=== PATIENT | male | born 1965 | race Caucasian/White ===

== ENCOUNTER 2022-04-17 13:19 | Emergency (ER) | payer BC, SELFPAY ==
[2022-04-17] VITALS (13 sets, daily range): BP systolic 156–180; BP diastolic 63–82; PULSE 45–65; RESP 11–30; TEMP 37.8; O2SAT 98–100; BMI 25.7
[2022-04-17] MEDS: ONDANSETRON 4 MG ODT SL (13:52)
[2022-04-17 13:59] LABS: Add Manual Diff / Slide Review NO; Basophils Absolute Auto 0 /uL (0-100); Basophils Percent Auto 0.2 % (0-2); Eosinophils Absolute Auto 0 /uL (0-450); Hematocrit 43.5 % (41-53); Hemoglobin 14.8 g/dL (13.5-17.5); Lymphocytes Absolute Auto 600 /uL (1100-4500); Lymphocytes Percent Auto 5.5 % (25-40); Mean Corpuscular HGB Conc 34.1 % (30-36); Mean Corpuscular Hemoglobin 30.5 PG (26-34); Mean Corpuscular Volume 89.4 fL (80-100); Monocytes Absolute Auto 300 /uL (0-900); Monocytes Percent Auto 2.7 % (3-14); Neutrophils Absolute Auto 9600 /uL (1500-7000); Neutrophils Percent Auto 91.6 % (50-75); Platelet Count 230 X10^3/uL (150-400); Red Blood Cell Count 4.86 X10^6/uL (4.5-5.9); Red Cell Distribution Width 13.1 % (11.6-14.8); White Blood Cell Count 10.5 X10^3/uL (4.5-11.0)
[2022-04-17 14:11] LABS: Alanine Aminotransferase 21 IU/L (<50); Albumin 4.8 g/dL (3.5-5.0); Albumin Globulin Ratio 1.5 (1.0-2.8); Alkaline Phosphatase 56 U/L (38-126); Aspartate Aminotransferase 33 IU/L (17-59); BUN Creatinine Ratio 14.8 (6-22); Bilirubin Total 0.9 mg/dL (0.2-1.3); Blood Urea Nitrogen 12 mg/dL (9-20); Calcium 9.4 mg/dL (8.4-10.2); Carbon Dioxide 27 mmol/L (22-32); Chloride 104 mmol/L (98-107); Estimated Glomerular Filt Rate > 60 mL/min (>60); Globulin 3.1 g/dL (1.7-4.1); Glucose 139 mg/dL (70-100); HEMOLYSIS < 15 (0-50); Lipase 82 U/L (23-300); Potassium 3.7 mmol/L (3.4-5.1); Sodium 142 mmol/L (137-145); Total Protein 7.9 g/dL (6.3-8.2)
[2022-04-17] MEDS: ACETAMINOPHEN 325 MG TABLET 975 MG PO (14:14)
[2022-04-17 14:34] LABS: COVID19 -Nasal RAPID Negative (Negative)
[2022-04-17 16:02] LABS: Bacteria Urine Occasional (0-1); Culture Indicated Urine Cult Not Indicated; Mucus Urine 2+ (Negative); RBC Urine 1-5/HPF (0-5/HPF); Squamous Epithelial Cell Urine None Seen (0-5/HPF); WBC Urine 0-1/HPF (0-5/HPF)
[2022-04-17] MEDS: KETOROLAC 30 MG/ML VIAL 15 MG IV (16:44)
--- NOTE | 2022-04-17 16:44 | ED.GENADULT ---
HPI - General Adult General Chief complaint: Abdominal Pain Stated complaint: detoxing oxiy vomitting no sleep cant drink Time Seen by Provider: 04/17/22 16:06 Source: patient Mode of arrival: Ambulatory History of Present Illness HPI narrative: Pito jeffrey is a 56-year-old man with opioid use disorder. He has been using blue ?oxycodone? pills that he acquires in [place]. He snorts these and uses approximately 10-20 each day. He says he has tried to quit using them multiple times all unsuccessfully. He normally lives in [facility] [place]. He is visiting this area just for about a week. His last opiate use was about 12 hours ago. He feels nausea and vomiting and muscle aches and very uncomfortable generally. He attributes all of these symptoms to opioid withdrawal. He denies any other substance use, specifically alcohol, benzodiazepines or other sedatives. He also denies stimulant use. Other than this drug addiction issue he says he does not have any other health problems. 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 Related Data Previous Rx's Medication Instructions Recorded buprenorphine 8 mg-naloxone 2 mg 1 film buccal DAILY #13 ea 04/17/22 sublingual film (Suboxone) clonidine HCl 0.2 mg tablet 0.2 mg PO TID Agitation, 04/17/22 irritability #20 tabs hydroxyzine HCl 50 mg tablet 50 mg PO TID PRN nausea and 04/17/22 vomiting #20 tabs ondansetron 4 mg disintegrating 4 mg PO Q6H Nausea #20 tabs 04/17/22 tablet Allergies Allergy/AdvReac Type Severity Reaction Status Date / Time No Known Drug Allergies Allergy Verified 04/17/22 13:52 Review of Systems Review of Systems Narrative: Complete review of systems is negative other than as noted above. Patient History Social History Smoking Status: Never smoker Smoking Status: Never smoker alcohol intake frequency: 0-2 drinks per day Exam Narrative Exam Narrative: GENERAL: Alert, looks very uncomfortable appearing. Yawning frequently. Dilated pupils. Gooseflesh HEAD: Atraumatic. Normocephalic. EYES: Sclera are clear without icterus. Extraocular movements are full. ENT: No rhinorrhea. Oropharynx is moist. Mouth exam is benign. NECK: Supple. Full range of motion. CARDIOVASCULAR: Normal rate and rhythm without murmur gallop or rub. RESPIRATORY: Clear to auscultation. Breath sounds equal bilaterally. No wheezes, rales, or rhonchi. GASTROINTESTINAL: Abdomen soft, non-tender, nondistended. EXTREMITIES: No edema, full range of motion. No obvious trauma. BACK: Normal inspection, no CVA tenderness. NEURO: Nonfocal examination, normal speech, normal gait. SKIN: No rash or erythema of visible areas PSYCH: Normally oriented. Normal range of affect. Appropriate behavior Initial Vital Signs Initial Vital Signs: Vital Signs Temperature 100.1 F H 04/17/22 13:29 Pulse Rate 60 04/17/22 13:29 Respiratory Rate 20 04/17/22 13:29 Blood Pressure 165/78 H 04/17/22 13:29 Pulse Oximetry 98 04/17/22 13:29 Oxygen Delivery Method 04/17/22 13:29 Course Orders Ordered: ED Orders 04/17/22 13:30 EKG-12 Lead Stat 04/17/22 13:47 Complete Blood Count AUTO DIFF Stat Comprehensive Metabolic Panel Stat Lipase Stat 04/17/22 14:19 COVID19 -Nasal RAPID/Pre-Proc Stat 04/17/22 15:36 Urine Drug Screen, Rapid Stat Urine Microscopic Stat Sodium Chloride (Normal Saline 0.9%) 1,000 mls @ 1,000 mls/hr IV BOLUS ONE Stop: 04/17/22 17:33 Last Admin: 04/17/22 16:48 Dose: 1,000 mls/hr Ondansetron HCl (Ondansetron 4 Mg/2 Ml Inj) 4 mg IV Q2HR PRN PRN Reason: Nausea And Vomiting Last Admin: 04/17/22 16:45 Dose: 4 mg Discontinued Medications Acetaminophen (Acetaminophen 325 Mg Tablet) 975 mg PO NOW ONE Stop: 04/17/22 14:10 Last Admin: 04/17/22 14:14 Dose: 975 mg Documented By: OW Acetaminophen (Acetaminophen 325 Mg Tablet) 975 mg PO NOW ONE Stop: 04/17/22 16:35 Last Admin: 04/17/22 16:43 Dose: Not Given Clonidine HCl (Clonidine 0.1 Mg Tablet) 0.2 mg PO NOW ONE Stop: 04/17/22 16:35 Last Admin: 04/17/22 16:45 Dose: 0.2 mg Hydroxyzine Pamoate (Hydroxyzine Pamoate 25 Mg Capsule) 50 mg PO NOW ONE Stop: 04/17/22 16:35 Last Admin: 04/17/22 16:52 Dose: 50 mg Ketorolac Tromethamine (Ketorolac 30 Mg/Ml Vial) 15 mg IV NOW ONE Stop: 04/17/22 16:35 Last Admin: 04/17/22 16:44 Dose: 15 mg Ondansetron HCl (Ondansetron 4 Mg Odt) 4 mg SL NOW ONE Stop: 04/17/22 13:46 Last Admin: 04/17/22 13:52 Dose: 4 mg Documented By: NR Vital Signs Vital signs: Vital Signs - 8 hr 04/17/22 13:29 04/17/22 14:14 04/17/22 15:37 Temperature 100.1 F H 100.1 F H Pulse Rate 60 Respiratory Rate 20 Blood Pressure 165/78 H 177/82 H Pulse Oximetry 98 Oxygen Delivery Method Room Air 04/17/22 15:37 04/17/22 15:41 04/17/22 15:41 Temperature Pulse Rate 50 L 55 L Respiratory Rate 13 Blood Pressure 175/80 H Pulse Oximetry Oxygen Delivery Method 04/17/22 16:00 04/17/22 16:01 04/17/22 16:01 Temperature Pulse Rate 45 L 48 L Respiratory Rate 30 H 28 H Blood Pressure 180/82 H Pulse Oximetry 98 98 Oxygen Delivery Method 04/17/22 16:45 04/17/22 16:10 04/17/22 16:10 Temperature Pulse Rate 46 L 47 L Respiratory Rate 16 Blood Pressure 170/80 H 177/81 H Pulse Oximetry 98 Oxygen Delivery Method 04/17/22 16:20 04/17/22 16:20 04/17/22 16:30 Temperature Pulse Rate 62 Respiratory Rate 19 Blood Pressure 169/63 H 162/77 H Pulse Oximetry 99 Oxygen Delivery Method 04/17/22 16:30 04/17/22 16:40 04/17/22 16:40 Temperature Pulse Rate 60 49 L Respiratory Rate 13 21 Blood Pressure 170/80 H Pulse Oximetry 100 98 Oxygen Delivery Method 04/17/22 16:50 04/17/22 16:50 04/17/22 17:00 Temperature Pulse Rate 49 L Respiratory Rate 11 L Blood Pressure 175/81 H 156/72 H Pulse Oximetry 100 Oxygen Delivery Method 04/17/22 17:00 Temperature Pulse Rate 65 Respiratory Rate 18 Blood Pressure Pulse Oximetry 98 Oxygen Delivery Method Medical Decision Making Lab Data Result diagrams: 04/17/22 13:47 04/17/22 13:47 Labs: Lab Results 04/17/22 04/17/22 04/17/22 Range/Units 13:47 13:47 14:19 WBC 10.5 (4.5-11.0) X10^3/uL RBC 4.86 (4.5-5.9) X10^6/uL Hgb 14.8 (13.5-17.5) g/dL Hct 43.5 (41-53) % MCV 89.4 (80-100) fL MCH 30.5 (26-34) PG MCHC 34.1 (30-36) % RDW 13.1 (11.6-14.8) % Plt Count 230 (150-400) X10^3/uL Neut % (Auto) 91.6 H (50-75) % Lymph % (Auto) 5.5 L (25-40) % [place] % (Auto) 2.7 L (3-14) % Eos % (Auto) 0.0 L (2-4) % Baso % (Auto) 0.2 (0-2) % Neut # (Auto) 9600 H (5850-3711) /uL Lymph # (Auto) 600 L (3785-6592) /uL [place] # (Auto) 300 (0-900) /uL Eos # (Auto) 0 (0-450) /uL Baso # (Auto) 0 (0-100) /uL Sodium 142 (137-145) mmol/L Potassium 3.7 (3.4-5.1) mmol/L Chloride 104 (98-107) mmol/L Carbon Dioxide 27 (22-32) mmol/L BUN 12 (9-20) mg/dL Creatinine 0.81 (0.66-1.25) mg/dL Estimated GFR > 60 (>60) mL/min BUN/Creatinine Ratio 14.8 (6-22) Glucose 139 H (70-100) mg/dL Calcium 9.4 (8.4-10.2) mg/dL Total Bilirubin 0.9 (0.2-1.3) mg/dL AST 33 (17-59) IU/L ALT 21 (<50) IU/L Alkaline Phosphatase 56 (38-126) U/L Total Protein 7.9 (6.3-8.2) g/dL Albumin 4.8 (3.5-5.0) g/dL Globulin 3.1 (1.7-4.1) g/dL Albumin/Globulin Ratio 1.5 (1.0-2.8) Lipase 82 (23-300) U/L Urine RBC (0-5/HPF) Urine WBC (0-5/HPF) Ur Squamous Epith Cells (0-5/HPF) Urine Bacteria (None) Urine Mucus (Negative) Ur Culture Indicated? U Opiates 300ng/mL cut (Negative) Ur Oxycodone Screen (Negative) Urine Methadone Screen (Negative) Ur Barbiturates Screen (Negative) U Tricyclic Antidepress (Negative) Ur Phencyclidine Scrn (Negative) Ur Amphetamines Screen (Negative) U Methamphetamines Scrn (Negative) Ur MDMA Scrn (Ecstasy) (Negative) U Benzodiazepines Scrn (Negative) Urine Cocaine Screen (Negative) U Marijuana (THC) Screen (Negative) SARS-CoV-2 (PCR) Negative (Negative) 04/17/22 04/17/22 Range/Units 15:36 15:36 WBC (4.5-11.0) X10^3/uL RBC (4.5-5.9) X10^6/uL Hgb (13.5-17.5) g/dL Hct (41-53) % MCV (80-100) fL MCH (26-34) PG MCHC (30-36) % RDW (11.6-14.8) % Plt Count (150-400) X10^3/uL Neut % (Auto) (50-75) % Lymph % (Auto) (25-40) % [place] % (Auto) (3-14) % Eos % (Auto) (2-4) % Baso % (Auto) (0-2) % Neut # (Auto) (0796-6744) /uL Lymph # (Auto) (3061-9071) /uL [place] # (Auto) (0-900) /uL Eos # (Auto) (0-450) /uL Baso # (Auto) (0-100) /uL Sodium (137-145) mmol/L Potassium (3.4-5.1) mmol/L Chloride (98-107) mmol/L Carbon Dioxide (22-32) mmol/L BUN (9-20) mg/dL Creatinine (0.66-1.25) mg/dL Estimated GFR (>60) mL/min BUN/Creatinine Ratio (6-22) Glucose (70-100) mg/dL Calcium (8.4-10.2) mg/dL Total Bilirubin (0.2-1.3) mg/dL AST (17-59) IU/L ALT (<50) IU/L Alkaline Phosphatase (38-126) U/L Total Protein (6.3-8.2) g/dL Albumin (3.5-5.0) g/dL Globulin (1.7-4.1) g/dL Albumin/Globulin Ratio (1.0-2.8) Lipase (23-300) U/L Urine RBC 1-5/hpf (0-5/HPF) Urine WBC 0-1/hpf (0-5/HPF) Ur Squamous Epith Cells None seen (0-5/HPF) Urine Bacteria Occasional (0-1) (None) Urine Mucus 2+ H (Negative) Ur Culture Indicated? Cult not indicated U Opiates 300ng/mL cut Positive H (Negative) Ur Oxycodone Screen Negative (Negative) Urine Methadone Screen Negative (Negative) Ur Barbiturates Screen Negative (Negative) U Tricyclic Antidepress Negative (Negative) Ur Phencyclidine Scrn Negative (Negative) Ur Amphetamines Screen Negative (Negative) U Methamphetamines Scrn Negative (Negative) Ur MDMA Scrn (Ecstasy) Negative (Negative) U Benzodiazepines Scrn Positive H (Negative) Urine Cocaine Screen Negative (Negative) U Marijuana (THC) Screen Negative (Negative) SARS-CoV-2 (PCR) (Negative) Urine Dip Bedside Urine Glucose Negative Bedside Urine Bilirubin - Negative Bedside Urine Ketone +++ 80 Urine Specific [place] 1.025 Bedside Urine Occult Blood +/- Bedside Urine pH 6.0 Bedside Urine Protein +/- 15 Bedside Urine Urobilinogen - Negative Bedside Urine Nitrite - Negative Bedside Urine Leukocytes - Negative Esterase Point of care testing: Urine Dip Bedside Urine Glucose Negative Bedside Urine Bilirubin - Negative Bedside Urine Ketone +++ 80 Urine Specific [place] 1.025 Bedside Urine Occult Blood +/- Bedside Urine pH 6.0 Bedside Urine Protein +/- 15 Bedside Urine Urobilinogen - Negative Bedside Urine Nitrite - Negative Bedside Urine Leukocytes - Negative Esterase ECG Data Interpretation: EKG obtained at 1:51 p.m. shows a sinus rhythm with a rate of 56 beats per minute. Leftward axis. QTC is 409. No acute ST or T-wave changes. MDM Narrative Medical decision making narrative: I had detailed discussion with this gentleman. I discussed treatment options for opioid use disorder including naltrexone, buprenorphine, methadone. I told him that only buprenorphine was available to him at this point in his addiction. He lives in a location where buprenorphine is not available to him. I will prescribe withdrawal medicines and a taper recipe for buprenorphine. Discharge Plan Departure Patient Disposition: Home Clinical Impression: Opioid dependence with withdrawal Activity Restrictions/Additional Instructions: Thank you for trusting us with your care today. I am sorry to have this terrible disease of opioid addiction. I would recommend reading the book: ?overcoming opioid addiction? by Gurdeep Ricketts MD. To help facilitate getting over the terrible withdrawals I recommend clonidine, hydroxyzine and Zofran as needed until you can start the buprenorphine. Buprenorphine will ultimately be much more helpful but you cannot take it until it has been at least 48 hours since your last fentanyl pill. Follow the taper provided over the next 55 days. You can do it faster if you want to. The instructions on the bottle will say take 1 film strip daily. Do not follow these instructions. Follow the preprinted handout I gave you. After you have completed the taper you may consider taking naltrexone (marketed under the brand name of Vivitrol) this is a once a day non habit-forming medication that is very effective for opioid craving. It also protect you from overdose in case you end up using opioids while taking it. Prescriptions: New buprenorphine-naloxone [Suboxone] 8-2 mg film 1 film buccal DAILY Qty: 13 0RF hydroxyzine HCl 50 mg tablet 50 mg PO TID PRN (Reason: nausea and vomiting) Qty: 20 0RF clonidine HCl 0.2 mg tablet 0.2 mg PO TID Qty: 20 0RF ondansetron 4 mg tablet,disintegrating 4 mg PO Q6H Qty: 20 0RF
[2022-04-17] MEDS: ONDANSETRON 4 MG/2 ML INJ IV (16:45)
[2022-04-17] MEDS: cloNIDine 0.1 MG TABLET 0.2 MG PO (16:45)
[2022-04-17] MEDS: SODIUM CHLORIDE 0.9% 1,000 ML 1000 ML IV (16:48)
[2022-04-17] MEDS: hydrOXYzine pamoate 25 MG CAPSULE 50 MG PO (16:52)
[2022-04-17 17:03] LABS: UR Morphine/Opiate cutoff 300 Positive (Negative); Ur Creatinine Normal (Normal); Ur Specific Gravity Normal (Normal); Urine Amphetamines Negative (Negative); Urine Barbiturates Negative (Negative); Urine Benzodiazepines Positive (Negative); Urine Cocaine Negative (Negative); Urine MDMA Negative (Negative); Urine Methadone Negative (Negative); Urine Methamphetamines Negative (Negative); Urine Oxycodone Negative (Negative); Urine Phencyclidine Negative (Negative); Urine Tetrahydrocannabinol Negative (Negative); Urine Tricyclic Antidepressant Negative (Negative); Urine pH Normal (Normal)
== END 2022-04-17 18:06 | disposition home or self-care (01) ==
PROVIDERS: Emergency Provider Family Medicine Addiction Medicine
DX: F11.23 Opioid dependence with withdrawal (principal); Z20.822 Contact with and (suspected) exposure to COVID-19
CPT/HCPCS: 36415; 80053; 80305; 81003; 81015; 83690; 85025; 87635; 93005; 93010; 96361; 96374; 96375; 99284; C9803; J1885; J2405